=== PATIENT | female | born 1980 | race Caucasian/White ===

== ENCOUNTER 2025-06-16 12:16 | Emergency (ER) | payer OTHER, SELFPAY ==
[2025-06-16 12:29] VITALS: BP 138/94; PULSE 90; RESP 17; TEMP 36.6; O2SAT 96; BMI 26.9
--- NOTE | 2025-06-16 14:58 | PC.NURSE ---
Patient reports getting bit by a small tick on 06/01 or 06/02 in [place] and then self-removed the tick on 06/03. Unsure what type of tick. Patient has consistent redness and warmth to right breast that is tender to palpation and measures [id number]. No bulls-eye noted. Patient also reports tenderness to right armpit and up right neck. No redness or swelling noted in those areas.
--- NOTE | 2025-06-16 15:43 | ED_ITS ---
HPI - Skin/Abscess/Foreign Bdy General Chief complaint: Skin/Abscess/Foreign Body Stated complaint: tick bite- red, swollen painful Time Seen by Provider: 06/16/25 14:10 History of Present Illness HPI narrative: 44-year-old female presents to the ED with a red rash on the left breast, fo llowing an insect bite. Patient states that she believes she got a tick bite in [place] around 06/01-06/02. Patient states she removed the tick. Patient states that 4 days ago, she started experiencing a large circumference of redness and swelling on the left breast at the site of the tick bite. Patient has been applying hydrocortisone cream with no relief. No fever, chills, chest pain, shortness of breath, nausea, vomiting. Related Data Previous Rx's ?Medication ?Instructions ?Recorded doxycycline hyclate 100 mg capsule 100 mg PO BID 10 da ys #20 caps 06/16/25 Allergies Allergy/AdvReac Type Severity Reaction Status Date / Time No Known Drug Allergies Allergy Verified 06/16/25 12:29 Review of Systems Constitutional Constitutional: Denies chills, Denies fatigue, Denies fever(s), Denies frequent falls, Denies lethargy and Denies weakness Eyes Eyes: Denies change in vision, Denies eye discharge, Denies irritation and Denies loss of vision ENT Ears, Nose, Mouth, and Throat: Denies change in voice, Denies dizziness, Denies neck pain, Denies sore throat and Denies throat swelling Cardiovascular Cardiovascular: Denies chest pain, Denies irregular heart rhythm, Denies lightheadedness, Denies palpitations, Denies dyspnea, Denies dyspnea on exertion and Denies orthopnea Respiratory Respiratory: Denies cough, Denies dyspnea, Denies dyspnea on exertion and Denies wheezing Gastrointestinal Gastrointestinal: Denies abdominal pain, Denies change in bowel habits, Denies diarrhea, Denies nausea and Denies vomiting Musculoskeletal Musculoskeletal: Denies neck pain and Denies numbness Integumentary/Breasts Skin/Breast: Denies pruritus, Reports erythema, Denies rash, Reports skin swelling and Denies wounds Neurologic Neurologic: Denies behavioral changes, Denies confusion, Denies dizziness, Denies frequent falls, Denies loss of vision, Denies numbness and Denies weakness Psychiatric Psychiatric: Denies anxiety, Denies behavioral changes, Denies confusion, Denies depression, Denies homicidal ideation and Denies suicidal ideation Endocrine Endocrine: Denies fatigue, Denies flushing and Denies palpitations Hematologic/Lymphatic Hematologic/Lymphatic: Denies easy bruising Allergic/Immunologic Allergic/Immunologic: Denies urticaria, Denies throat swelling and Denies wheezing Patient History Social History Smoking Status: Never smoker Smoking Status: Never smoker Exam Narrative Exam Narrative: Const General:?cooperative, healthy appearing and comfortable [facility] Head:?normal to inspection Ears:?hearing grossly normal bilaterally Nose:?external nose normal Face and sinus:?normal facial exam and sinuses nontender Mouth:?oral mucosae normal Throat:?posterior oropharynx normal Eyes General:?appearance normal, both eyes and all related structures Neck Neck:?normal visual inspection and no lymphadenopathy noted Resp Effort & Inspection:?normal respiratory effort Auscultation:?clear to auscultation bilaterally Cardio Rate:?regular rate Rhythm:?regular rhythm Integumentary There is a large, circular patch of erythema on the left breast. No induration, fluctuance, discharge. Most consistent with cellulitis. Neuro General:?patient alert, patient awake and patient oriented x3 Initial Vital Signs Initial Vital Signs: Vital Signs Temperature 97.9 F 06/16/25 12:29 Pulse Rate 90 06/16/25 12:29 Respiratory Rate 17 06/16/25 12:29 Blood Pressure 138/94 H 06/16/25 12:29 Pulse Oximetry 96 06/16/25 12:29 Oxygen Delivery Method Room Air 06/16/25 12:29 Course Vital Signs Vital signs: Vital Signs - 8 hr 06/16/25 12:29 06/16/25 16:20 Temperature 97.9 F 98.3 F Pulse Rate 90 88 Respiratory Rate 17 18 Blood Pressure 138/94 H 138/82 Pulse Oximetry 96 99 Oxygen Delivery Method Room Air Room Air MDM - Skin/Abscess/Foreign Bdy MDM Narrative Medical decision making narrative: 44-year-old female presents to the ED with a red rash on the left breast, following an insect bite. Concern for tick bite versus other insect bite versus cellulitis versus other. Prescribed doxycycline. Margins of erythema marked with a surgical marker. Patient agrees to monitor the redness and return to the ED if worsening symptoms. ED return precautions discussed with patient. Patient verbalized understanding. Medical records reviewed: Yes Discharge Plan Departure Patient Disposition: Home Clinical Impression: Insect bites Qualifiers: Encounter type: initial encounter Site of insect bite: breast Laterality: right Qualified Code(s): S20.161A - Insect bite (nonvenomous) of breast, right breast, initial encounter Cellulitis Qualifiers: Site of cellulitis: trunk Site of cellulitis of trunk: chest wall Qualified Code(s): L03.313 - Cellulitis of chest wall Instructions: DI for Cellulitis -- Adult Activity Restrictions/Additional Instructions: You were evaluated in the ED today for an insect bite, possibly a tick bite. It appears that you do have a skin infection around the site of the bite. You are being prescribed antibiotics for 10 days. Please continue to monitor your symptoms and the redness. Return to the ED if you have worsening symptoms. Prescriptions: New doxycycline hyclate 100 mg capsule 100 mg PO BID 10 Days Qty: 20 0RF Stand Alone Forms: Patient Portal/API
[2025-06-16 16:20] VITALS: BP 138/82; PULSE 88; RESP 18; TEMP 36.8; O2SAT 99
== END 2025-06-16 16:19 | disposition home or self-care (01) ==
PROVIDERS: Emergency Provider Student in an Organized Health Care Education/Training Program
DX: L03.313 Cellulitis of chest wall (principal); S20.161A Insect bite (nonvenomous) of breast, right breast, initial encounter; W57.XXXA Bitten or stung by nonvenomous insect and other nonvenomous arthropods, initial encounter
CPT/HCPCS: 99281